=== PATIENT | female | born 1980 | race Asian ===

== ENCOUNTER → 2022-11-08 | Day surgery (SDC) | payer OTHER ==
[~2022-11-08] MED LIST: ISOSULFAN BLUE 50 MG/5 ML VIAL SQ ONE
== END | disposition home or self-care (01) ==
LOC: JRADUS-SUR 10:59
PROVIDERS: ATTEND Surgery
PROC: BH01ZZZ Plain Radiography of Left Breast (ICD-10-PCS; principal; 2022-11-08)
DX: D24.2 Benign neoplasm of left breast (principal)
CPT/HCPCS: 19281; A4648; C9803-CS; U0003; U0005

== ENCOUNTER 2022-11-11 03:52 | Day surgery (SDC) | payer OTHER ==
[2022-11-09 12:42] VITALS: BMI 19.1
[2022-11-11] MEDS ORDERED: PROPOFOL 40 ML ONE ×2 (09:59→10:05)
[2022-11-11] MEDS ORDERED: LIDOCAINE HCL/PF 2% SDV 5ML VIAL ONE ×2 (09:59→10:00)
[2022-11-11] MEDS ORDERED: MIDAZOLAM HCL 2 MG/2 ML SINGLE DOSE VIAL ONE (09:59)
[2022-11-11] MEDS ORDERED: SUCCINYLCHOLINE CHLORIDE 200 MG/10 ML SYRINGE ONE (10:01)
[2022-11-11] MEDS ORDERED: ceFAZolin SODIUM 1 GM VIAL ONE (10:15)
[2022-11-11] MEDS ORDERED: ceFAZolin SODIUM 1 GM VIAL IVPB ONE (10:17)
[2022-11-11] MEDS ORDERED: LIDOCAINE HCL 1%, 10 MG/ML (20ML VIAL) NR ONE ×3 (10:21)
[2022-11-11] MEDS ORDERED: oxyCODONE HCL 5 MG TABLET PO PRN (11:18)
[2022-11-11] MEDS ORDERED: ACETAMINOPHEN 1000 MG/100 ML BAG IVPB ONE ×3 (11:18→11:30)
[2022-11-11] MEDS ORDERED: ONDANSETRON 4 MG/2 ML VIAL IVPUSH PRN (11:18)
[2022-11-11] MEDS ORDERED: ACETAMINOPHEN INJECTION 100 ML IVPB ONE (11:26)
[2022-11-11] MEDS ORDERED: LACTATED RINGERS SOLUTION 1,000 ML IV SCH (11:30)
[2022-11-11 13:16] VITALS: RESP 16
[2022-11-11 14:12] VITALS: BP 88/48; PULSE 61; TEMP 98.2
== END 2022-11-11 14:20 | disposition home or self-care (01) ==
LOC: JASU-SURG 03:52
PROVIDERS: ATTEND Surgery
PROC: 0HBU0ZX Excision of Left Breast, Open Approach, Diagnostic (ICD-10-PCS; principal; 2022-11-11 10:30)
DX: D24.2 Benign neoplasm of left breast (principal)
CPT/HCPCS: 76098-TC-FY; 81025; 88307-TC; 88341-TC; 88342-TC; 94760